=== PATIENT | female | born 2000 | race Caucasian/White ===

== ENCOUNTER → 2021-12-02 14:00 | Outpatient (BNVA) | payer MEDICARE, SELFPAY | PROVIDERS: PCP Internal Medicine; Visit Provider Psychiatry & Neurology Neurology | DX: G43.109 Migraine with aura, not intractable, without status migrainosus (principal) | CPT/HCPCS: Q3014 ==

== ENCOUNTER → 2022-02-09 16:00 | Outpatient (BNVA) | payer BC, SELFPAY | PROVIDERS: Visit Provider Psychiatry & Neurology Neurology | DX: G43.109 Migraine with aura, not intractable, without status migrainosus (principal) | CPT/HCPCS: Q3014 ==

== ENCOUNTER → 2023-02-14 11:19 | Outpatient (BNVA) | payer BC, SELFPAY | PROVIDERS: PCP Internal Medicine; Visit Provider Psychiatry & Neurology Neurology | DX: Z13.89 Encounter for screening for other disorder (principal) ==

== ENCOUNTER → 2023-05-18 15:44 | Outpatient (BNVA) | payer BC, SELFPAY | PROVIDERS: PCP Internal Medicine; Visit Provider Psychiatry & Neurology Neurology ==

== ENCOUNTER 2024-12-16 07:51 | Outpatient (AMB) | payer BC, SELFPAY ==
--- OUTSIDE RECORDS SUMMARY | 2024-12-16 07:54 | XMS_ITS | Clinical Summary ---
Author Organization [address] Address [address] [place] [phone] Phone Care Team Providers Care Child Support Agent Name Role Phone Obtain, Unable To Primary Care Provider Unavaila ble Allergies Active Allergy Reactions Criticality Noted Date Comments Amoxicillin 10/15/2019 Medications desogestrel-ethi nyl estradiol (RECLIPSEN, 28, ORAL) Take by mouth. Active rimegepant (NURTEC ODT) 75 mg TbDLIndications: Chronic migraine w/o aura w/o status migrainosus, not intractable Take 1 tablet (75 mg total) by mouth as needed (once daily for migraine). 8 tablet 6 0 Active venlafaxine XR (EFFEXOR XR) 150 mg 24 hr capsuleIndicatio ns:Chronic migraine w/o aura w/o status migrainosus, not intractable Take 1 capsule (150 mg total) by mouth daily. 30 capsule 6 0 Active naratriptan (AMERGE) 2.5 mg tabletIndication s:Chronic migraine w/o aura w/o status migrainosus, not intractable TAKE 1 TABLET BY MOUTH AT ONSET OF HEADACHE. MAY REPEAT IN 4 HOURS IF HEADACHE RETURNS 12 tablet 2 1 Active Active Problems Problem Noted Date Diagnosed Date Chronic migraine w/o aura w/ o status migrainosus, not intractable 10/15/2019 Family History Medical History Relation Name Comments Migraines Mother Relation Name Status Comments Father Alive Mother Alive Social History Tobacco Use Types Packs/Day Years Used Date Smoking Tobacco: Never Smokeless Tobacco: Never Alcohol Use Standard Drinks/Week Comments Yes 0 (1 standard drink = 0.6 oz pur e alcohol) occ Comments Unknown Sex and Gender Information Value Date Recorded Sex Assigned at Not on file Legal Sex Female 4:50 PM EDT Gender Identity Not on file Sexual Orientation Not on file Last Filed Vital Signs Vital Sign Reading Time Taken Comments Blood Pressure 102/64 11/15/2019 12:55 PM EST Pulse 69 11/15/2019 12:55 PM EST Temperature 35.8 ??C (96.5 ??F) 03/20/2018 6:30 PM ED T Respiratory Rate 18 11/15/2019 12:55 PM EST Oxygen Saturation 98% 11/15/2019 12:55 PM EST Inhaled Oxygen Concentration - - Weight 59 kg (130 lb) 11/15/2019 12:55 PM EST Height 172.7 cm (5' 8 ) 11/15/2019 12:55 PM EST Body Mass Index 19.77 11/15/2019 12:55 PM EST Plan of Treatment Health Maintenance Due Date Last Done Comments MMR Vaccines (1 of 1 - Standard series) 08/04/2009 HIV screening 2011 Hepatitis C screening 2016 Cervical cancer screening 2019 DTaP/TDaP Vaccines (7 - Td or Tdap) 07/08/2020 07/08/2010, 2002, 10/25/1999, Additional history exists Tetanus adult (Td q 10,TDAP once) 07/08/2020 07/08/2010, 2002, 10/25/1999, Additional history exists Influenza vaccine 06/20/2024 12/02/2019, , 11/28/2017, Additional history exists Covid-19 vaccine series (2023- season) 2024 RSV Discussion (1 - 1-dose 75+ series) 2073 Hepatitis B vaccine series Completed 01/21, 1998, 1998 HIB Vaccines Completed 10/25/1999, 02/1999, 1998, Additional history exists IPV Vaccines Completed 2002, 04/1999, 10/25/1999, Additional history exists Varicella Vaccines Completed 07/07/2009, 07/27/1999 HPV vaccine series Completed 01/29/2015, 1 , 07/08/2014 Meningococcal Vaccine Completed 11/24/2016, 012 Hepatitis A Vaccines Aged Out No long er eligible based on patient's age to complete this topic Pneumococcal Vaccine Aged Out No long er eligible based on patient's age to complete this topic Rotavirus Vaccines Aged Out No longer eligible based on patient's age to complete this topic Insurance [address] [address] BS BS Care Teams Child Support Agent Relationship Specialty Start Date End Date Obtain, Unable To PCP - General 03/20/18
--- OUTSIDE RECORDS SUMMARY | 2024-12-16 07:54 | XMS_ITS | Encounter Summary ---
Author Organization [facility] and [facility] Address [address] [place] [id number] Care Team Providers Care Plugger Worker Name Role Phone Obtain, Unable To Primary Care Provider Unavaila ble Encounter Details Date Type Department Care Team (Late st Contact Info) Description 09/05/2019 Scanned Document Neurology [address] [address] No, Pcp (Do Not Change Name) Social History Tobacco Use Types Packs/Day Years Used Date Smoking Tobacco: Never Assessed Comments Unknown Sex and Gender Information Value Date Recorded Sex Assigned at Not on file Legal Sex Female 4:50 PM EDT Gender Identity Not on file Sexual Orientation Not on file documented as of this encounter Plan of Treatment Not on file documented as of this encounter Visit Diagnoses Not on filedocumented in this encounter Care Teams Plugger Worker Relationship Specialty Start Date End Date Obtain, Unable To PCP - General 03/20/18 documented as of this encounter
--- OUTSIDE RECORDS SUMMARY | 2024-12-16 07:54 | XMS_ITS | Clinical Summary ---
Author Organization [facility] Address [address] [place] [address] Care Team Providers Care China Painter Name Role Phone Adrienne Hutson MD Primary Care Prov ider Allergies Active Allergy Reactions Criticality Noted Date Comments Amoxicillin Rash 06/29/2007 Food Allergy Formula Itching 10/09/2018 Green beans,apple, carrot, celery,banana, peach , manriquez,and nectarine AND SOY Medications Medication Sig Dispensed Refills Start Date End Date Status magnesium oxide (MAG-OX) 400 mg (241.3 elemental magnesium) tablet Take 1 tablet (400 mg total) by mouth. 11/24/2021 Active rimegepant (Nurtec) 75 mg dispersible tablet DISSOLVE 1 TABLET ON THE TONGUE EVERY OTHER DAY FOR MIGRAINE HEADACHE 11/22/2022 Active topiramate (TOPAMAX) 25 mg tablet Take 1 tablet (25 mg total) by mouth 1 (one) time each day. 05/19/2023 Active desogestreL-ethinyl estradioL (Isibloom) 0.15-0.03 mg per tablet Take 1 tablet by mouth 1 (one) time each day. 05/20/2024 Active amitriptyline (ELAVIL) 25 mg tablet Take 1 tablet (25 mg total) by mouth. 05/15/2023 Active Active Problems Problem Noted Date Diagnosed Date Migraines 04/21/2020 Chronic migraine w/o aura w/ o status migrainosus, not intractable 10/15/2019 Immunizations Name Administration Dates Next Due DTaP (Infanrix) 6wks to less than 7yo ,10/25/1999,01/21/1999,11/23,1998 [id number] (Pentacel) 2mo to less than 5yo 10/25/1999,01/21/1999,1998,09/24 HPV, Quadrivalent 01/29/2015,09/10/2014,07/08/20 14 Hepatitis B Pediatric (Enger ix B; Recombivax HB) to less than 20 yo 01/21/1999,1998,1998 IPV Inactivated polio (Ipol) 6wks and older 2002,10/25/1999,1998,09/24 Influenza Quadravalent, MDCK , 0.5ml, preservative free (Flucelvax) 6mo and older 12/02/2019 MMR, measles mumps and rubel la Live (Priorix; M-M-R II) 12mo and older 2002,07/27/1999 Meningococcal MCV4P 11/24/2016,07/16/2012 Pfizer SARS-CoV-2 COVID-19, mRNA, LNP-S, preservative free 03/10/2021,02/14/2021 Tdap Tetanus diptheria acell ular pertussis (Boostrix; Adacel) 7yo and older 01/03/2022,07/08/2010 Varicella live (Varivax) 12m o and older 07/07/2009,07/27/1999 Surgical History Surgery Date Site/Laterality Comments WISDOM TOOTH EXTRACTION PROCEDURE: HISTORICAL WISDOM TEETH EXTRACTION Medical History Medical History Date Comments [place] teeth extracted DX:[place] teeth extracted Family History Medical History Relation Name Comments Hyperlipidemia Father Other: Hearing loss Maternal Grandfather Diabetes Maternal Grandmother Breast cancer Mother preDM Other: Epilepsy Mother's side Hyperlipidemia Paternal Grandfather Other: Bee allergy Paternal Grandmother No Known Problems Sister Relation Name Status Comments Father Alive 09/01/64 Maternal Grandfather Alive Maternal Grandmother Alive Mother Alive 11/16/68 Mother's side Alive Paternal Grandfather Paternal Grandmother Sister Alive 07/19/01 Social History Tobacco Use Types Packs/Day Years Used Date Smoking Tobacco: Never Smokeless Tobacco: Never Alcohol Use Standard Drinks/Week Comments Yes 0 (1 standard drink = 0.6 oz pur e alcohol) Sex and Gender Information Value Date Recorded Sex Assigned at Not on file Gender Identity Not on file Sexual Orientation Not on file Obstetrics History Last Filed Vital Signs Vital Sign Reading Time Taken Comments Blood Pressure 110/62 05/20/2024 9:27 AM EDT Pulse 69 05/20/2024 9:27 AM EDT Temperature - - Respiratory Rate - - Oxygen Saturation - - Inhaled Oxygen Concentration - - Weight 70.3 kg (155 lb) 05/20/2024 9:27 AM EDT Height 172.7 cm (5' 8 ) 05/20/2024 9:27 AM EDT Body Mass Index 23.57 05/20/2024 9:27 AM EDT Plan of Treatment Upcoming Encounters Date Type Department Care Team (Late st Contact Info) Description 12/20/2024 7:30 AM EST Office Visit Adult Medicine [address] [phone] Adrienne Hutson MD [address] [place] [id number] Health Maintenance Due Date Last Done Comments Depression Screening 10/29/2022 HIV Screening 10/29/2022 Hepatitis C Screening 10/29/2022 Social Influencers of Health Screening 10/29/2022 COVID-19 Vaccine ( season) 2024 03/10/2021, 02/14/2021 Influenza Vaccine (#1) 2024 , 12/04/2018, 11/28/2017, Additional history exists Cervical Cancer Screening: Pap Smear 05/18/2026 05/18/2023, 12/27/2019 DTaP,Tdap,and Td Vaccines (8 - Td or Tdap) 01/03/2032 01/03/2022, 07/08/2010, 2002, Additional history exists Hepatitis B Vaccines Completed 01/21/1999, 1998, 1998 HIB Vaccines Completed 10/25/1999, 02/1999, 1998, Additional history exists IPV Vaccines Completed 2002, 04/1999, 10/25/1999, Additional history exists MMR Vaccines Completed 2002, 07/27/1999 Varicella Vaccines Completed 07/07/2009, 07/27/1999 HPV Vaccines Completed 01/29/2015, 08/21, 07/08/2014 Meningococcal ACWY Vaccine Completed 11/24/2016, Hepatitis A Vaccines Aged Out No long er eligible based on patient's age to complete this topic Pneumococcal Vaccine: Pediatrics (0 to 5 Years) and At-Risk Patients (6 to 64 Years) Aged Out No longer eligible based on patient's age to complete this topic RSV Immunization Patients Under 20 months Aged Out No longer eligible based on patient's age to complete this topic Procedures Procedure Name Priority Date/Time Associated Diagnosis Comments PAP SMEAR Routine 12/27/2019 from Last 3 Months or Most Recently Relevant to Health Maintenance Results * Pap smear (12/27/2019) 12/27/2019 Narrative HISTORICAL TESTING LAB RESULTING AGENCY - 12/31/2019 12:31 PM EST [id number] THINPREP PAP, IMAGED: NEGATIVE FOR SQUAMOUS INTRAEPITHELIAL LESION AND MALIGNANCY . ABUNDANT PARTIALLY OBSCURING ACUTE INFLAMMATORY CELLS ARE PRESENT. AARON MARQUEZ , RIA(ASCP) (CASE ELECTRONICALLY SIGNED 12 31 2019) ADEQUACY: SATISFACTORY ENDOCERVICAL/TRANSFORMATION ZONE COMPONENT PRESENT. SOURCE: THINPREP PAP HPV IF ASCUS, CERVICAL, IMAGED CLINICAL INFORMATION: HPV IF DIAGNOSIS OF ASCUS. Z12.4, Z01.419, HORMONES, PAP HX NEGATIVE, LMP 12/19/2019 LMP Marcelo Ordonez CNM LAB CYTOLOGY ORDERAB LES HISTORICAL TESTING LAB RESULTING AGENCY from Last 3 Months or Most Recently Relevant to Health Maintenance Care Teams China Painter Relationship Specialty Start Date End Date Adrienne Hutson MD PCP - General Internal Medicine 06/20/22
[2024-12-16 07:59] VITALS: BP 106/70; PULSE 70; O2SAT 95; BMI 22.0
--- NOTE | 2024-12-16 07:59 | A.OFFVIS_ITS ---
Vital Signs 12/16/24 07:59 Height 5 ft 8 in Weight 144 lb 8 oz BMI 22.0 BP 106/70 Blood Pressure Location Lt brachial Position Sitting Pulse 70 Pulse Source Pulse Oximeter Pulse Oximetry (%) 95 Oxygen Delivery Method Room Air Intake Visit Reasons: Follow up Intake Note: patient states she had a bad migrain in october that made her pass out on bathroom floor. Allergies amoxicillin Allergy (Mild, Verified 12/16/24 08:01) unknown soy Adverse Reaction (Mild, Verified 12/16/24 08:01) Unknown HPI Comments Details: Right-handed 24-yr-old female presents for f/u visit for migraine. Patient was last seen by Dr. Jackson in 05/09/2023. She is having 1 migraine attack per week, which can last 2 hours - 1-2 days with treatment. Without acute tx- attack may last up to 2 weeks. She reports she had a syncopal episode during a more severe migraine attack in October 2024. States, the headache started as a a dull headache during the day, but then converted to a migraine. She took a nurtec when she felt the headache become a migraine, she went home from work, she did eat some toast, and slept for a little while. She she got up to go to the bathroom, as she felt nausous. She felt even more nauseous and lightheaded, so sat on the floor, and next thing she knew, she came to laying on her side. She never did vomit during this attack. She denies incontinence or tongue biting. Denies postictal muscle soreness, worsening confusion. She had not eaten a full dinner the night before, but had eaten a full breakfast, lunch and the toast prior to this episode. She had drank her usual amount of water- typically 60 oz throughout the day. She is prone to orthostatic lightheadedness. She had a treadmill stress test, which was WNL per patient, approx 2 yrs ago to evaluate episodes of tachycardia (HR up to 200s) when doing weighted lunges (holding 2 10 lb dumbbells). She states that walking on the treadmill at approximately the 3.2 mph on an incline does not trigger tachycardia. She does not usually feel tachycardia upon standing. She does continue to exercise, but has not noticed this degree of tachycardia since stopping doing that particular exercise. She has never seen cardiology. She has never had a syncopal episode before. Denies h/o anemia. She is generally photophobic. Her appetite overall is not great. She is compliant w/ B2, topirmate, and amitriptyline. Feels nurtec is the only thing that helps anymore- uses it prn as when she tried to take it QOD she had nothing to treat her off day migraine attacks.. 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 Baseline headache characteristics: Throbbing/sharp pain in bilateral temples and neck (may be unilateral on either side) a/w seeing flashing lights when her eyes are closed but not open during not before the attack, photophobia, phonophobia, nausea, vomiting (in approx 40% of attacks, but often will feel better, orthostatic lightheadedness, concentration difficulties, and activity tolerance. [facility] Medical History Migraines Family History Mother Cancer Seizures Diabetes Father High cholesterol Social History Alcohol intake: current Alcohol intake frequency: holidays/special occasions only Patient Tobacco Use Status: Never used Tobacco Physical Exam Vital Signs: Last Vital Signs Pulse 70 12/16/24 07:59 BP 106/70 12/16/24 07:59 Pulse Ox 95 12/16/24 07:59 Oxygen Delivery Method Room Air 12/16/24 07:59 BMI result Body Mass Index 22.0 Const General: cooperative and no acute distress Orientation/consciousness: patient oriented x3 Resp Effort & Inspection: normal respiratory effort and able to speak in complete sentences Neuro General: patient oriented x3 Cranial nerves: Yes CN's II-XII intact bilaterally Cognition (Neuro): normal cognition Psych Appearance: grossly normal Mental Status: mental status grossly normal Speech and movement: Normal speech and movement present Affect: normal affect Attitude: cooperative Assessment & Plan Assessment & Plan (1) Migraine with aura: Code(s): G43.109 - Migraine with aura, not intractable, without status migrainosus Category: Medical (2) Syncope: Code(s): R55 - Syncope and collapse Category: Medical Qualifiers: Encounter type: initial encounter (3) Orthostatic lightheadedness: Code(s): R42 - Dizziness and giddiness Category: Medical Plan For episode of passing out/syncope: We will request a Cardiology consult We will request a baseline EEG Try adding 16-20 oz of electrolyte replacement beverage, such as Gatorade or liquid IV daily in the morning. For overall headache management: It is important to practice good self-care, including but not limited to eating a healthy diet, drinking enough fluids (typically 64 oz per day), maintaining a good sleep routine, and engaging in regular physical activity (typically 30-45 minutes of moderate physical activity 5 days per week). Track headaches. Information shared on nonpharmacological migraine treatment options. For acute/as needed headache treatment: It is important to take as needed acute medications at the first sign of headache, however you want to avoid taking most as needed headache too often as this can lead to medication overuse/adaptation headaches. Continue Rimegepant ODT (Nurtec ODT) 75mg, 1 tab at onset of headache.. Max of 1 tabs (75mg) per 24 hours. May take Rimegepant with OTC Tylenol 650mg q 4 hours, Ibuprofen 600mg q 6 hours, or Naproxen 440mg q 12 hrs prn. Previous acute migraine medication trials: Rizatriptan caused jaw tighness. Naratriptan was not tolerated. Acute migraine medication contraindications: None at this time For headache prevention medication: Preventative medications should be taken routinely as prescribed for best effect, it may take several weeks to see full effect. Continue Riboflavin 400mg daily in the morning. Continue amitriptyline 25 mg daily at bedtime- would not increase further due to h/o syncope. Continue topiramate 25 mg daily at bedtime- would not increase further due to h/o decreased appetite. Start Emgality 120mg/ml auto-injection: Loading dose: 240mg (2 120mg/ml auto-injections) via subcutaneous injection in 2 different sites). Then 30 days after loading dose, start Maintenance dose: 120mg (120mg/ml autoinjector) subcutaneous injection every month. Patient will let us know if she requires injection training once Emgality is available. Important considerations: * Emgality will likely require insurance prior authorization prior to receiving it from the pharmacy. * Potential side effects include allergic reaction and injection site reactions. * Emgality injection training educational video is available to view on [email or web address] * Store Emgality in the refrigerator in it's original packaging in order to protect from light. * Remove Emgality at least 1 hour prior to taking the injection. * Emgality can be left out of the fridge for?up to 7 days at a temperature not above 86?F. If either of these conditions are exceeded, then Emgality must be thrown away. * Once Emgality has been stored out of refrigeration, do not place it back in the refrigerator. Once we know, if Emgality is effective, consider weaning off of amitriptyline/topiramate. Previous migraine prevention medication trials: Amitriptyline and topiramate- not fully effective Migraine prevention medication contraindications: Antihypertensives due to orthostatic lightheadedness and syncope. Orders: Orders EEG electroencephalogram Today G43.109 - Migraine with aura, not intractable, without status migrainosus, R55 - Syncope and collapse Referrals Cardiology Referral G43.109 - Migraine with aura, not intractable, without status migrainosus, R42 - Dizziness and giddiness, R55 - Syncope and collapse Medications: New galcanezumab-gnlm (Emgality Pen) Loading dose: 120 mg subcu injection x2 in alternate sites (total 240 mg). To be followed by maintenance dose of 120 mg subcu q.month. 240 mg (2 mL) subcut ONCE 30 days 2 mL 0RF G43.109 - Migraine with aura, not intractable, without status migrainosus Changed From rimegepant (Nurtec ODT) 75 mg PO Q OTHER DAY 15 tabs 6RF migraine headache G43.109 - Migraine with aura, not intractable, without status migrainosus To rimegepant (Nurtec ODT) 75 mg PO DAILY 30 days PRN 16 tabs 6RF migraine headache MDD 1 tab G43.109 - Migraine with aura, not intractable, without status migrainosus From amitriptyline 25 mg PO BEDTIME 30 tabs 3RF To amitriptyline 25 mg PO BEDTIME 30 days 30 tabs 6RF From riboflavin (vitamin B2) 400 mg PO DAILY To riboflavin (vitamin B2) 400 mg PO DAILY 90 days 90 tabs 3RF Refilled topiramate 25 mg PO DAILY 30 tabs 6RF Coding Level of Care Code Est Pt Level 4 (80714) Diagnoses Migraine with aura G43.109 Syncope R55 Encounter type: initial encounter Orthostatic lightheadedness R42
== END 2024-12-16 09:07 | disposition home or self-care (01) ==
PROVIDERS: PCP Internal Medicine; Visit Provider Nurse Practitioner Family
DX: G43.109 Migraine with aura, not intractable, without status migrainosus (principal); R55 Syncope and collapse; R42 Dizziness and giddiness
CPT/HCPCS: 99214

== ENCOUNTER 2025-01-30 10:27 | Outpatient (REF) | payer BC, SELFPAY ==
--- NOTE | 2025-01-30 10:32 | EEG_ITS ---
This is a 16-channel EEG with an EKG lead. The patient is reported awake during the tracing. Background EEG rhythm is 12-14 hertz, 5 to 20 microvolt posteriorly and lower amplitude fast anteriorly. Patient transitioned into mild drowsiness with no significant abnormality. Photic stimulation does not produce any significant driving. Hyperventilation is unremarkable. Cardiac lead does not reveal any significant abnormality. No sharp wave spikes or paroxysmal tendency noted. IMPRESSION: Unremarkable EEG. MD JOSE L Trevino/ALONSO / [id number]
--- OUTSIDE RECORDS SUMMARY | 2025-01-30 13:06 | XMS_ITS | Clinical Summary ---
Author Organization [facility] Address [address] [place] [address] Care Team Providers Care Dump Grounds Checker Name Role Phone Adrienne Hutson MD Primary Care Prov ider Allergies Active Allergy Reactions Criticality Noted Date Comments Amoxicillin Rash 06/29/2007 Food Allergy Formula Itching 10/09/2018 Green beans,apple, carrot, celery,banana, peach , manriquez,and nectarine AND SOY Medications magnesium oxide (MAG-OX) 400 mg (241.3 elemental magnesium) tablet Take 1 tablet (400 mg total) by mouth. 2 Active rimegepant (Nurtec) 75 mg dispersible tablet DISSOLVE 1 TABLET ON THE TONGUE EVERY OTHER DAY FOR MIGRAINE HEADACHE 3 Active topiramate (TOPAMAX) 25 mg tablet Take 1 tablet (25 mg total) by mouth 1 (one) time each day. 3 Active desogestreL-ethi nyl estradioL (Isibloom) 0.15-0.03 mg per tablet Take 1 tablet by mouth 1 (one) time each day. 4 Active amitriptyline (ELAVIL) 25 mg tablet Take 1 tablet (25 mg total) by mouth. 3 Active Active Problems Problem Noted Date Diagnosed Date Migraines 04/21/2020 Chronic migraine w/o aura w/ o status migrainosus, not intractable 10/15/2019 Immunizations Name Administration Dates Next Due DTaP (Infanrix) 6wks to less than 7yo ,10/25/1999,01/21/1999,11/23,1998 [id number] (Pentacel) 2mo to less than 5yo 10/25/1999,01/21/1999,1998,09/24 HPV, Quadrivalent 01/29/2015,09/10/2014,07/08/20 14 Hepatitis B Pediatric (Enger ix B; Recombivax HB) to less than 20 yo 01/21/1999,1998,1998 IPV Inactivated polio (Ipol) 6wks and older 2002,10/25/1999,1998,09/24 Influenza Quadravalent, MDCK , 0.5ml, preservative free (Flucelvax) 6mo and older 12/02/2019 MMR, measles mumps and rubel la Live (Priorix; M-M-R II) 12mo and older 2002,07/27/1999 Meningococcal MCV4P 11/24/2016,07/16/2012 [place]wider SARS-CoV-2 COVID-19, mRNA, LNP-S, preservative free 03/10/2021,02/14/2021 Tdap Tetanus diptheria acell ular pertussis (Boostrix; Adacel) 7yo and older 01/03/2022,07/08/2010 Varicella live (Varivax) 12m o and older 07/07/2009,07/27/1999 Surgical History Surgery Date Site/Laterality Comments WISDOM TOOTH EXTRACTION PROCEDURE: HISTORICAL WISDOM TEETH EXTRACTION Medical History Medical History Date Comments [place] teeth extracted DX:[place] teeth extracted Family History Medical History Relation [...] drink = 0.6 oz pur e alcohol) Comments Unknown Sex and Gender Information Value Date Recorded Sex Assigned at Not on file Legal Sex Female 12:22 PM EST Gender Identity Not on file Sexual Orientation [...] Care Team (Late st Contact Info) Description 05/29/2025 9:45 AM EDT Office Visit Obstetrics and Gynecology [facility] [address] [place] [address] Marcelo Ordonez CN [address] [place] [address] 10/30/2025 3:00 PM EST Office Visit Adult Medicine [address] [phone] Adrienne Hutson MD [address] [place] [id number] Health Maintenance Due Date Last Done Comments [...] on patient's age to complete this topic Meningococcal B Vacine Aged Out No lo nger eligible based on patient's age to complete [...] RESULTING AGENCY - 12/31/2019 12:31 PM EST [id number] THINPREP PAP, IMAGED: NEGATIVE FOR SQUAMOUS INTRAEPITHELIAL LESION AND MALIGNANCY . ABUNDANT PARTIALLY OBSCURING ACUTE INFLAMMATORY CELLS ARE PRESENT. RIA MOBLEY(ASCP) (CASE ELECTRONICALLY SIGNED 12 31 2019) ADEQUACY: SATISFACTORY ENDOCERVICAL/TRANSFORMATION ZONE COMPONENT PRESENT. SOURCE: THINPREP PAP HPV IF ASCUS, CERVICAL, IMAGED CLINICAL INFORMATION: HPV IF DIAGNOSIS OF ASCUS. Z12.4, Z01.419, HORMONES, PAP HX NEGATIVE, LMP 12/19/2019 LMP us Marcelo Ordonez [facility] LAB CYTOLOGY ORDERABLES Final Result HISTORICAL TESTING LAB RESULTING AGENCY from Last 3 Months or Most Recently Relevant to Health Maintenance Care Teams Dump Grounds Checker Relationship Specialty Start Date End Date Adrienne Hutson MD PCP - General Internal Medicine 06/20/22
== END 2025-01-30 10:28 | disposition home or self-care (01) ==
LOC: HO.NEURO 10:27
PROVIDERS: PCP Internal Medicine; Visit Provider Nurse Practitioner Family
DX: R55 Syncope and collapse (principal); G43.109 Migraine with aura, not intractable, without status migrainosus
CPT/HCPCS: 95816

== ENCOUNTER 2025-06-05 08:49 | Outpatient (AMB) | payer BC, SELFPAY ==
--- NOTE | 2025-06-05 08:53 | A.OFFVIS_ITS ---
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: No Allergies amoxicillin Allergy (Mild, Verified 12/16/24 08:01) unknown soy Adverse Reaction (Mild, Verified 12/16/24 08:01) Unknown Medication List - Last Reconciled 06/05/25 by Joce Roque MD amitriptyline 25 mg PO BEDTIME 30 days desogestrel-ethinyl estradiol 0.15-0.03 mg (Isibloom) 1 tab PO DAILY epinephrine 0.3 mg IM Q4H PRN galcanezumab-gnlm (Emgality Pen) 240 mg (2 mL) subcut ONCE 30 days riboflavin (vitamin B2) 400 mg PO DAILY 90 days rimegepant (Nurtec ODT) 75 mg PO DAILY PRN 30 days MDD 1 tab spironolactone (Aldactone) 100 mg PO BID topiramate 25 mg PO DAILY HPI Comments Details: Thank you for referring Elise in cardiology consultation today for syncope. 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 She has had history of syncope since age of 10. However she has had 3 or 4 episodes of syncope in the last 14-15 years. The last episode was while she is having attack of migraine. She says she gets frequent attack of migraine and she gets nauseous. Last particular episode she was sitting near the toilet throwing up and subsequently she had passed out and was sitting against the wall. Symptoms lasted for less than a minute. There were no clear bowel bladder incontinence is noted that time. Patient did get lightheaded. She has history of lightheadedness and has symptoms of orthostatic lightheadedness. Some of the episodes of syncope has been associated with orthostatic stress especially after she has been standing for long period of time and locking her niece. One of the episode of syncope happened while she was doing upright lunges. One of the episodes was witnessed by her parents when she was younger and then notice that she was extremely pale. All these episodes have not associated with injuries and a preceded but lightheadedness. She denies any symptoms of palpitation although says sometimes with some exercises she noticed that her watch beats at a significantly elevated heart rate. She has no exertional chest pain or shortness of breath. She has no recent changes in his health. She was recently started on spironolactone therapy at 100 mg for acne. She has had no side effects related to it. No family history of sudden cardiac [facility] Medical History Migraines Family History Mother Cancer Seizures Diabetes Father High cholesterol Social History Alcohol intake: current Alcohol intake frequency: holidays/special occasions only Patient Tobacco Use Status: Never used Tobacco Review of Systems Const Denies chills, Denies daytime sleepiness, Denies fatigue, Denies fever(s), Denies frequent falls, Denies poor appetite, Denies snoring, Denies stops breathing during sleep, Denies weakness, Denies weight gain and Denies weight loss Eyes Denies loss of vision ENT Denies dizziness and Denies hearing loss Card Denies chest pain, Denies claudication, Denies leg edema, Denies lightheadedness, Denies palpitations, Denies dyspnea, Denies dyspnea on exertion and Denies orthopnea Resp Denies cough, Denies excessive phlegm production, Denies dyspnea, Denies dyspnea on exertion, Denies snoring and Denies wheezing GI Denies abdominal pain, Denies hematochezia, Denies change in bowel habits, Denies nausea and Denies vomiting Denies urinary frequency and Denies dysuria Musc Denies arthralgias, Denies muscle weakness, Denies numbness and Denies other (frequent falls) Skin/Breast Denies nail changes and Denies rash Neuro Denies Abnormal speech present, Denies dizziness, Denies frequent falls, Denies loss of vision, Denies memory loss, Denies numbness and Denies weakness Psych Denies depression and Denies memory loss Endo Denies fatigue and Denies palpitations Geoff/Lymph Reports easy bruising and Reports other (anemia) Aller/Immun Denies wheezing Physical Exam Vital Signs: Last Vital Signs Pulse 114 H 06/05/25 09:09 BP 112/73 06/05/25 09:09 BMI result Body Mass Index 21.1 Const General: cooperative, comfortable, well developed, alert, awake and Physically active Nutritional Appearance: well nourished and thin Orientation/consciousness: patient oriented x3 Limitations: no limitations HEENT Head: Yes normocephalic and Yes atraumatic Neck Neck: Yes trachea midline, Yes supple and Yes no JVD Chest Chest palpation & inspection: normal inspection of the chest Resp Effort & Inspection: normal respiratory effort Auscultation: clear to auscultation bilaterally Cardio Jugular venous distension: no JVD Palpation: normal PMI Rate: regular rate Rhythm: regular rhythm Heart sounds: S1 normal heart sound present, S2 normal heart sound present, no click, no gallops, no murmurs and no rubs GI Auscultation: normal bowel sounds Skin General skin exam: no rashes or lesions noted Neuro General: patient oriented x3 and no focal motor deficits Speech: No Abnormal speech present Extrem General: Yes no clubbing, cyanosis or edema Psych Appearance: grossly normal Office Procedures EKG Details: EKG shows normal sinus rhythm with low-voltage QRS which is unusual with rightward axis with poor R-wave progression most likely lead placement [id number], Complete Assessment & Plan Assessment & Plan (1) Syncope: Code(s): R55 - Syncope and collapse Category: Medical Qualifiers: Encounter type: initial encounter Plan: Syncope in this young woman, noted to have orthostatic tachycardia today. Patient has symptoms suggestive of orthostatic lightheadedness. Possible etiology of her syncope appears to be either vasovagal etiology and/or orthostatic hypotension. Both of the mechanism on most likely related to poor venous return and relative intravascular volume depletion. Her situations all suggest above 2 mechanism. This was discussed with her. She has no clear family history of sudden cardiac that. I would suggest that she get an echocardiogram to rule out any structural heart issues given her EKGs findings of low-voltage QRS as well as rightward axis. I would also suggest a 14 day Holter monitor to rule out any significant arrhythmias although less likely. She had a stress test 3 years ago and will try to obtain a copy of the same. However the most important test potentially he is going to be head-up tilt-table test. This will help us with the diagnose of possibly vasovagal or orthostatic syncope. Further treatment based on the finding. I have long discussion about management of this syndrome. We discussed about increase fluid and salt intake to mitigate her symptoms. Overall benign nature of this syndrome was discussed and discussed her about assuming sitting or supine position when she gets her initial symptoms of lightheadedness. She shows understanding to all. Will follow up in the clinic in 3 months time, sooner p.r.n.. Thank you for allowing me to partake in her care Coding Level of Care Code New Pt Level 4 (59651) Complex EM visit Add On G2211 Diagnoses Syncope R55 Encounter type: initial encounter CPT Codes EKG - CPT: 32706-[id number], Complete ([id number])
[2025-06-05 08:54] VITALS: BP 106/62; PULSE 71; BMI 21.1
[2025-06-05 09:07] VITALS: BP 105/73; PULSE 81
--- OUTSIDE RECORDS SUMMARY | 2025-06-05 09:08 | XMS_ITS | Clinical Summary ---
Author Organization [address] Address [address] [place] [phone] Phone Care Team Providers Care Aircraft Restorer Name Role Phone Obtain, Unable To Primary [...] 69 11/15/2019 12:55 PM EST Temperature 35.8 C (96.5 F) 03/20/2018 6:30 PM EDT Respiratory Rate 18 11/15/2019 12:55 PM EST [...] 07/08/2020 07/08/2010, 2002, 10/25/1999, Additional history exists Covid-19 vaccine series ( - 2023- season) 2024 Influenza vaccine 07/21/2025 12/02/2019, , 11/28/2017, Additional history exists RSV Immunization (1 - 1-dose 75+ series) 2073 Hepatitis [...] age to complete this topic Pneumococcal Vaccine (2 - 49 years) Aged Out No longer eligible based on patient's age to complete this topic Rotavirus Vaccines Aged Out No longer eligible based on patient's age to complete this topic Insurance [place] [address] BS BS Care Teams Aircraft Restorer Relationship Specialty Start Date End Date Obtain, Unable To PCP - General 03/20/18
--- OUTSIDE RECORDS SUMMARY | 2025-06-05 09:08 | XMS_ITS | Clinical Summary ---
Author Organization [facility] [address] [facility] Address [address] [place] [address] Phone Care Team Providers Care Staff Physical Therapist Name Role Phone Adrienne Hutson MD Primary [...] 1 (one) time each day. 3 Active amitriptyline (ELAVIL) 25 mg tablet Take 1 tablet (25 mg total) by mouth. 3 Active Isibloom 0.15-0.03 mg per tablet TAKE 1 TABLET BY MOUTH DAILY 84 tablet 1 5 Active Active Problems Problem Noted Date Diagnosed Date Migraines 04/21/2020 Chronic migraine w/o aura w/ o status migrainosus, not intractable 10/15/2019 Immunizations Name Administration Dates Next Due DTaP (Infanrix) 6wks to less than 7yo ,10/25/1999,01/21/1999,11/23,1998 [id number] (Pentacel) 2mo to less than 5yo 10/25/1999,01/21/1999,1998,09/24 HPV, Quadrivalent 01/29/2015,09/10/2014,07/08/20 14 Hepatitis B Pediatric (Enger ix B; Recombivax HB) to less than 20 yo 01/21/1999,1998,1998 IPV Inactivated polio (Ipol) 6wks and older 2002,10/25/1999,1998,09/24 Influenza Quadravalent, MDCK , 0.5ml, preservative free (Flucelvax) 6mo and older 12/02/2019 MMR, measles mumps and rubel la Live (Priorix; M-M-R II) 12mo and older 2002,07/27/1999 Meningococcal MCV4P 11/24/2016,07/16/2012 [place] SARS-CoV-2 COVID-19, mRNA, LNP-S, preservative free 03/10/2021,02/14/2021 Tdap Tetanus diptheria acell ular pertussis (Boostrix; Adacel) 7yo and older 01/03/2022,07/08/2010 Varicella live (Varivax) 12m o and older 07/07/2009,07/27/1999 Surgical History Surgery Date Site/Laterality Comments WISDOM TOOTH EXTRACTION PROCEDURE: HISTORICAL WISDOM TEETH EXTRACTION Medical History Medical History Date Comments [place] teeth extracted DX:[place] teeth extracted Family History Medical History Relation [...] Care Team (Late st Contact Info) Description 10/30/2025 3:00 PM EST Office Visit Adult Medicine [address] [phone] Adrienne Hutson MD [address] [place] [id number] Health Maintenance Due Date Last Done Comments Depression Screening 10/29/2022 HIV Screening 10/29/2022 Hepatitis C Screening 10/29/2022 Social Influencers of Health Screening 10/29/2022 COVID-19 Vaccine ( season) 2024 03/10/2021, 02/14/2021 Influenza Vaccine (#1) 2025 , 12/04/2018, 11/28/2017, Additional history exists Cervical [...] age to complete this topic Meningococcal B Vaccine Aged Out No l onger eligible based on patient's age to complete this topic Pneumococcal Vaccine: Pediatrics (0 to 5 Years) and At-Risk Patients (6 to 49 Years) Aged Out No longer eligible based [...] RESULTING AGENCY - 12/31/2019 12:31 PM EST [id number] THINPREP PAP, IMAGED: NEGATIVE FOR SQUAMOUS INTRAEPITHELIAL LESION AND MALIGNANCY . ABUNDANT PARTIALLY OBSCURING ACUTE INFLAMMATORY CELLS ARE PRESENT. RIA MOBLEY(ASCP) (CASE ELECTRONICALLY SIGNED 12 31 2019) ADEQUACY: SATISFACTORY ENDOCERVICAL/TRANSFORMATION ZONE COMPONENT PRESENT. SOURCE: THINPREP PAP HPV IF ASCUS, CERVICAL, IMAGED CLINICAL INFORMATION: HPV IF DIAGNOSIS OF ASCUS. Z12.4, Z01.419, HORMONES, PAP HX NEGATIVE, LMP 12/19/2019 LMP us Marcelo MUNOZ LAB CYTOLOGY ORDERABLES Final Result HISTORICAL TESTING LAB RESULTING AGENCY from Last 3 Months or Most Recently Relevant to Health Maintenance Insurance [facility] Care Teams Staff Physical Therapist Relationship Specialty Start Date End Date Adrienne Hutson MD PCP - General Internal Medicine 06/20/22
[2025-06-05 09:09] VITALS: BP 112/73; PULSE 114
== END 2025-06-05 09:36 | disposition home or self-care (01) ==
LOC: HO.HCS 08:51
PROVIDERS: PCP Internal Medicine; Visit Provider Internal Medicine Cardiovascular Disease
DX: R55 Syncope and collapse (principal)
CPT/HCPCS: 93010; 99204

== ENCOUNTER → 2025-06-05 08:49 | Outpatient (BNVA) | payer BC, SELFPAY | PROVIDERS: PCP Internal Medicine; Visit Provider Internal Medicine Cardiovascular Disease | DX: R55 Syncope and collapse (principal); R94.31 Abnormal electrocardiogram [ECG] [EKG] | CPT/HCPCS: 93005 ==

== ENCOUNTER 2025-06-12 08:47 | Outpatient (AMB) | payer BC, SELFPAY ==
[2025-06-12 08:52] VITALS: BP 110/62; PULSE 86; O2SAT 99; BMI 21.4
--- NOTE | 2025-06-12 08:52 | A.OFFVIS_ITS ---
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 Accompanied by: Self / Same As Patient Allergies amoxicillin Allergy (Mild, Verified 06/12/25 08:56) unknown soy Adverse Reaction (Mild, Verified 06/12/25 08:56) Unknown Medication List - Last Reconciled 06/12/25 by JOON Layne amitriptyline 25 mg PO BEDTIME 30 days desogestrel-ethinyl estradiol 0.15-0.03 mg (Isibloom) 1 tab PO DAILY epinephrine 0.3 mg IM Q4H PRN galcanezumab-gnlm (Emgality Pen) 240 mg (2 mL) subcut ONCE 30 days riboflavin (vitamin B2) 400 mg PO DAILY 90 days rimegepant (Nurtec ODT) 75 mg PO DAILY PRN 30 days MDD 1 tab spironolactone (Aldactone) 100 mg PO DAILY topiramate 25 mg PO DAILY HPI Comments Details: 24-year-old female patient presents for follow-up for migraine and history of syncope in October 2024. Patient denies any significant interval changes. 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 She denies any interval syncopal events. She recently saw Cardiology, who has ordered tilt-table test, echocardiogram, 14 day Holter. Patient states in terms of her migraines, she is about the same. She never started Emgality, states that insurance will only cover maintenance dose in the loading dose.? She is open to receiving loading dose here today, as we have available samples of Emgality loading dose.? She is having 1 migraine day per week. Nurtec is still helpful. 12/16/2024, previous HPI: Right-handed 24-yr-old female presents for f/u visit for migraine. Patient was last seen by Dr. Jackson in 05/09/2023. She is having 1 migraine attack per week, which can last 2 hours - 1-2 days with treatment. Without acute tx- attack may last up to 2 weeks. She reports she had a syncopal episode during a more severe migraine attack in October 2024. States, the headache started as a a dull headache during the day, but then converted to a migraine. She took a nurtec when she felt the headache become a migraine, she went home from work, she did eat some toast, and slept for a little while. She she got up to go to the bathroom, as she felt nausous. She felt even more nauseous and lightheaded, so sat on the floor, and next thing she knew, she came to laying on her side. She never did vomit during this attack. She denies incontinence or tongue biting. Denies postictal muscle soreness, worsening confusion. She had not eaten a full dinner the night before, but had eaten a full breakfast, lunch and the toast prior to this episode. She had drank her usual amount of water- typically 60 oz throughout the day. She is prone to orthostatic lightheadedness. She had a treadmill stress test, which was WNL per patient, approx 2 yrs ago to evaluate episodes of tachycardia (HR up to 200s) when doing weighted lunges (holding 2 10 lb dumbbells). She states that walking on the treadmill at approximately the 3.2 mph on an incline does not trigger tachycardia. She does not usually feel tachycardia upon standing. She does continue to exercise, but has not noticed this degree of tachycardia since stopping doing that particular exercise. She has never seen cardiology. She has never had a syncopal episode before. Denies h/o anemia. She is generally photophobic. Her appetite overall is not great. She is compliant w/ B2, topirmate, and amitriptyline. Feels nurtec is the only thing that helps anymore- uses it prn as when she tried to take it QOD she had nothing to treat her off day migraine attacks.. 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 Baseline headache characteristics: Throbbing/sharp pain in bilateral temples and neck (may be unilateral on either side) a/w seeing flashing lights when her eyes are closed but not open during not before the attack, photophobia, phonophobia, nausea, vomiting (in approx 40% of attacks, but often will feel better, orthostatic lightheadedness, concentration difficulties, and activity tolerance. [facility] Medical History Migraines Family History Mother Cancer Seizures Diabetes Father High cholesterol Social History Alcohol intake: current Alcohol intake frequency: holidays/special occasions only Patient Tobacco Use Status: Never used Tobacco Physical Exam Vital Signs: Last Vital Signs Pulse 86 06/12/25 08:52 BP 110/62 06/12/25 08:52 Pulse Ox 99 06/12/25 08:52 Oxygen Delivery Method Room Air 06/12/25 08:52 BMI result Body Mass Index 21.4 Const General: cooperative and no acute distress Orientation/consciousness: patient oriented x3 Resp Effort & Inspection: normal respiratory effort and able to speak in complete sentences Neuro General: patient oriented x3 Cranial nerves: Yes CN's II-XII intact bilaterally Cognition (Neuro): normal cognition Psych Appearance: grossly normal Mental Status: mental status grossly normal Speech and movement: Normal speech and movement present Affect: normal affect Attitude: cooperative Assessment & Plan Assessment & Plan (1) Migraine with aura: Code(s): G43.109 - Migraine with aura, not intractable, without status migrainosus Category: Medical Qualifiers: Status migrainosus presence: without status migrainosus Intractability: not intractable Qualified Code(s): G43.109 - Migraine with aura, not intractable, without status migrainosus (2) Syncope: Code(s): R55 - Syncope and collapse Category: Medical Qualifiers: Encounter type: subsequent encounter (3) Orthostatic lightheadedness: Code(s): R42 - Dizziness and giddiness Category: Medical Plan For episode of passing out/syncope: Reviewed EEG within normal limits We will check baseline CBC and CMP-noting that patient has recently started spironolactone for acne treatment Follow-up with cardiology as scheduled Tilt-table test, echocardiogram, and Holter as ordered by Cardiology. Ensure adequate fluid intake, including 16-20 oz of electrolyte replacement beverage, such as Gatorade or liquid IV daily in the morning. For overall headache management: It is important to practice good self-care, including but not limited to eating a healthy diet, drinking enough fluids (typically 64 oz per day), maintaining a good sleep routine, and engaging in regular physical activity (typically 30-45 minutes of moderate physical activity 5 days per week). Track headaches. Information shared on nonpharmacological migraine treatment options. For acute/as needed headache treatment: It is important to take as needed acute medications at the first sign of he adache, however you want to avoid taking most as needed headache too often as this can lead to medication overuse/adaptation headaches. Continue Rimegepant ODT (Nurtec ODT) 75mg, 1 tab at onset of headache.. Max of 1 tabs (75mg) per 24 hours. May take Rimegepant with OTC Tylenol 650mg q 4 hours, Ibuprofen 600mg q 6 hours, or Naproxen 440mg q 12 hrs prn. Previous acute migraine medication trials: Rizatriptan caused jaw tighness. Naratriptan was not tolerated. Acute migraine medication contraindications: None at this time For headache prevention medication: Preventative medications should be taken routinely as prescribed for best effect, it may take several weeks to see full effect. Continue Riboflavin 400mg daily in the morning. Continue amitriptyline 25 mg daily at bedtime- would not increase further due to h/o syncope. Continue topiramate 25 mg daily at bedtime- would not increase further due to h/o decreased appetite. Start Emgality 120mg/ml auto-injection today- RN we will provide initial Emgality injection with Emgality loading dose sample. * Loading dose: 240mg (2 120mg/ml auto-injections) via subcutaneous injection in 2 different sites). * Then 30 days after loading dose, start Maintenance dose: 120mg (120mg/ml autoinjector) subcutaneous injection every month. * Important considerations: * Emgality will likely require insurance reauthorization, after starting Emgality. * Potential side effects include allergic reaction and injection site reactions. * Emgality injection training educational video is available to view on [employer] * Store Emgality in the refrigerator in it's original packaging in order to protect from light. * Remove Emgality at least 1 hour prior to taking the injection. * Emgality can be left out of the fridge for?up to 7 days at a temperature not above 86?F. If either of these conditions are exceeded, then Emgality must be thrown away. * Once Emgality has been stored out of refrigeration, do not place it back in the refrigerator. Once we know, if Emgality is effective, consider weaning off of amitriptyline/topiramate. Previous migraine prevention medication trials: Amitriptyline and topiramate- not fully effective Migraine prevention medication contraindications: Antihypertensives due to orthostatic lightheadedness and syncope. Will follow-up upon review of above and patient to follow-up in clinic in 6 months or sooner prn. Sample provided: Emgality 120mg/ml auto-injector Amt given: 1 box containing 240mg (2 120mg/ml auto-injections) Lot# [id number] Exp date: 05/28/2026 24 y/o female patient presents for Emgality injection training. Emgality 120mg/ml X2 injection sample provided. Lot #[id number] and Exp 2025May 28 Education regarding injection and side effects provided. Emgality 120mg/ml injection administered on pt administered LLQ and RN administered RLQ. Pt tolerated and demonstrated the injection well. Follow up in clinic as scheduled or prn with concerns. Orders: Orders Comprehensive Met. Panel Today G43.109 - Migraine with aura, not intractable, without status migrainosus, L70.9 - Acne, unspecified, R42 - Dizziness and giddiness, R55 - Syncope and collapse Complete Blood Count Auto Diff Today G43.109 - Migraine with aura, not intrac table, without status migrainosus, L70.9 - Acne, unspecified, R42 - Dizziness and giddiness, R55 - Syncope and collapse Medications: New galcanezumab-gnlm (Emgality Pen) Maintenance dose of 120 mg subcu q.month. 120 mg subcut Q30D 1 mL 6RF 30 days Discontinued galcanezumab-gnlm (Emgality Pen) Loading dose: 120 mg subcu injection x2 in alternate sites (total 240 mg). To be followed by maintenance dose of 120 mg subcu q.month. Discontinued Reason: Doctor's Order 240 mg (2 mL) subcut ONCE 30 days 2 mL 0RF G43.109 - Migraine with aura, not intractable, without status migrainosus Coding Level of Care Code Est Pt Level 4 (57749) Diagnoses Migraine with aura and without status migrainosus, not intractable G43.109 Status migrainosus presence: without status migrainosus Intractability: not intractable Syncope R55 Encounter type: subsequent encounter Orthostatic lightheadedness R42
--- OUTSIDE RECORDS SUMMARY | 2025-06-12 09:14 | XMS_ITS | Clinical Summary ---
Author Organization [facility] [address] [facility] [address] Address [address] [place] [address] Phone Care Team Providers Care Joint Maker Machine Name Role Phone Adrienne Hutson MD Primary [...] (Infanrix) 6wks to less than 7yo ,10/25/1999,01/21/1999,11/23,1998 WEdG-RZY-PPX (Pentacel) 2mo to less than 5yo 10/25/1999,01/21/1999,1998,09/24 HPV, Quadrivalent 01/29/2015,09/10/2014,07/08/20 14 Hepatitis B Pediatric (Enger ix B; Recombivax HB) to less than 20 yo 01/21/1999,1998,1998 IPV Inactivated polio (Ipol) 6wks and older 2002,10/25/1999,1998,09/24 Influenza Quadravalent, MDCK , 0.5ml, preservative free (Flucelvax) 6mo and older 12/02/2019 MMR, measles mumps and rubel la Live (Priorix; M-M-R II) 12mo and older 2002,07/27/1999 Meningococcal MCV4P 11/24/2016,07/16/2012 Tins.ly SARS-CoV-2 COVID-19, mRNA, LNP-S, preservative free 03/10/2021,02/14/2021 Tdap Tetanus diptheria acell ular pertussis (Boostrix; Adacel) 7yo and older 01/03/2022,07/08/2010 Varicella live (Varivax) 12m o and older 07/07/2009,07/27/1999 Surgical History Surgery Date Site/Laterality Comments WISDOM TOOTH EXTRACTION PROCEDURE: HISTORICAL WISDOM TEETH EXTRACTION Medical History Medical History Date Comments [place] teeth extracted DX:[place] teeth extracted Family History Medical History Relation [...] Care Team (Late st Contact Info) Description 08/12/2025 1:[address] [facility] Xray [address] [place] [address] 10/30/2025 3:00 PM EST Office Visit Adult Medicine [facility] [address] [place] [phone] Adrienne Hutson MD [address] [place] [id number] Health Maintenance Due Date Last Done Comments HIV Screening 10/29/2022 Hepatitis C Screening 10/29/2022 Social Influencers of Health Screening 10/29/2022 COVID-19 Vaccine ( season) 2024 03/10/2021, 02/14/2021 Depression Screening 11/20/2024 Influenza Vaccine (#1) 2025 , 12/04/2018, 11/28/2017, [...] RESULTING AGENCY - 12/31/2019 12:31 PM EST [id number] THINPREP PAP, IMAGED: NEGATIVE FOR SQUAMOUS INTRAEPITHELIAL LESION AND MALIGNANCY . ABUNDANT PARTIALLY OBSCURING ACUTE INFLAMMATORY CELLS ARE PRESENT. RIA MOBLEY(ASCP) (CASE ELECTRONICALLY SIGNED 12 31 2019) ADEQUACY: SATISFACTORY ENDOCERVICAL/TRANSFORMATION ZONE COMPONENT PRESENT. SOURCE: THINPREP PAP HPV IF ASCUS, CERVICAL, IMAGED CLINICAL INFORMATION: HPV IF DIAGNOSIS OF ASCUS. Z12.4, Z01.419, HORMONES, PAP HX NEGATIVE, LMP 12/19/2019 LMP Marcelo Ordonez CNM LAB CYTOLOGY ORDERABLES Final Result HISTORICAL TESTING LAB RESULTING AGENCY from Last 3 Months or Most Recently Relevant to Health Maintenance Insurance [facility] Care Teams Joint Maker Machine Relationship Specialty Start Date End Date Adrienne Hutson MD PCP - General Internal Medicine 06/20/22
--- OUTSIDE RECORDS SUMMARY | 2025-06-12 09:14 | XMS_ITS ---
Author Name [facility] Organization Unknown Care Team Organization Name Specialty Phone Email Start Date End Da te [facility] Adrienne Lopez Primary Care 01/25/2023 07/08/2024 [facility] Termed, PROVIDER Primary Care 09/27/202206/20
--- OUTSIDE RECORDS SUMMARY | 2025-06-12 09:14 | XMS_ITS | Clinical Summary ---
[place] [address] Care Team Providers Care Claims Collector Name Role Phone Unavailable Primary Care Provider Unavailabl e Encounters Date Type Department Care Team Description 04/21/2025 Telephone [place] [phone] Macarena Santo, RN Donor Referral (Kidney) 04/17/2025 Telephone [place] [phone] Macarena Santo, RN Donor Referral (Kidney) 04/16/2025 Telephone [place] [phone] Juliet Rodriguez from Last 3 Months Social History Tobacco Use Types Packs/Day Years Used Date Smoking Tobacco: Never Assessed Comments Unknown Sex and Gender Information Value Date Recorded Sex Assigned at Not on file Legal Sex Female 11:55 AM EDT Gender Identity Not on file Sexual Orientation Not on file Plan of Treatment Health Maintenance Due Date Last Done Comments HPV vaccine (1 - 3-dose series) 2013 HIV screen 2016 Hepatitis C Screening 2016 Hepatitis B vaccine (0-59 yrs) and Risk (1) 2017 Tetanus/Diphtheria/Pertussis Vaccines (1 - Tdap) 07/23 PAP Smear 2019 Covid-19 Vaccine ( - 2023- season) 2024 Influenza (Flu) vaccine (1 o f 1 - Influenza standard series) 07/21/2025
== END 2025-06-12 09:18 | disposition home or self-care (01) ==
LOC: HO.HSMS 08:48
PROVIDERS: PCP Internal Medicine; Visit Provider Nurse Practitioner Family
DX: G43.109 Migraine with aura, not intractable, without status migrainosus (principal); R55 Syncope and collapse; R42 Dizziness and giddiness
CPT/HCPCS: 99214

== ENCOUNTER 2025-06-12 08:47 | Outpatient (REF) | payer BC, SELFPAY ==
--- OUTSIDE RECORDS SUMMARY | 2025-06-12 09:58 | XMS_ITS | Clinical Summary ---
Author Organization [address] Address [address] [place] [phone] Phone Care Team Providers Care Nurse Auditor Name Role Phone Obtain, Unable To Primary [...] patient's age to complete this topic Insurance [address] [place] [address] BS BS Care Teams Nurse Auditor Relationship Specialty Start Date End Date Obtain, Unable To PCP - General 03/20/18
[2025-06-12 13:17] LABS: MANUAL DIFF FLAG NO
[2025-06-12 13:24] LABS: Hematocrit 39.0 % (37.0-47.0); Hemoglobin 12.8 g/dl (12.0-16.0); Imm Gran Abs Auto 0.02 X10*3/uL (0.00-0.03); Imm Gran Pct Auto 0.3 % (0.0-0.4); Lymphocytes Absolute Auto 2.8 X10*3/uL (1.2-4.9); Mean Corpuscular HGB Conc 32.8 g/dl (31.0-35.0); Mean Corpuscular Hemoglobin 27.8 pg (27.0-33.0); Mean Corpuscular Volume 84.8 fL (80.0-98.0); NRBC Abs Auto 0.000 X10*3/uL (0.0-0.012); NRBC Pct Auto 0.0 /100WBC (0.0-0.2); Platelet Count 298 X10*3/uL (160-400); Red Blood Count 4.60 X10*6/uL (4.20-5.50); White Blood Count 7.6 X10*3/uL (4.8-10.8)
[2025-06-12 13:44] LABS: Alanine Aminotransferase 14 U/L (0-31); Albumin Level 4.5 g/dL (3.5-5.0); Alkaline Phosphatase 64 U/L (39-117); Anion Gap 12 (12-20); Aspartate Amino Transferase 19 U/L (5-31); Blood Urea Nitrogen 15 mg/dL (9-16); Calcium 9.9 mg/dL (8.4-10.2); Carbon Dioxide 24 mmol/L (22-29); Chloride 109 mmol/L (96-108); Estimated Glomerular Filt Rate > 60; Potassium 4.7 mmol/L (3.3-5.1); Sodium 140 mmol/L (135-145); Total Protein 7.3 g/dL (6.5-8.0)
== END 2025-06-12 08:48 | disposition home or self-care (01) ==
LOC: HO.HKASLDS 08:47
PROVIDERS: PCP Internal Medicine; Visit Provider Nurse Practitioner Family
DX: G43.109 Migraine with aura, not intractable, without status migrainosus (principal); L70.9 Acne, unspecified; R55 Syncope and collapse; R42 Dizziness and giddiness; Z79.899 Other long term (current) drug therapy
CPT/HCPCS: 36415; 80053; 85025

== ENCOUNTER → 2025-07-31 08:48 | Outpatient (REF) | payer BC, SELFPAY ==
--- NOTE | 2025-07-31 08:52 | CA_ITS ---
Transthoracic Echocardiogram Patient (Last, First, Middle): Elise Alexandra, Gender: F Date of : 2000 Age: 25 Procedure Date: 07/31/2025 Procedure Type: Transthoracic Echocardiogram Location: OP Height: 172. cm Weight: 63.5 kg BSA: 1.75 m2 Heart Rate: 74 bpm BP: 110 / 70 mmHg Sales Service Supervisor: BRANNON Olea MD: Joce Roque MD Customer Support Advisor: Joce Roque MD Symptoms: R55 - Syncope and collapse Study Quality: Fair ECG Rhythm: Sinus Conclusions: - Essentially normal study Findings Left Ventricle Normal left ventricular size, thickness, and systolic function. The visually estimated ejection fraction is between 60-65%. Diastolic function is normal for age. Right Ventricle Normal right ventricular cavity size and systolic function. Atria Both atria are normal in size. There is no evidence of interatrial shunt. Aortic Valve Normal aortic valve structure and function. There is no aortic valve stenosis. There is no aortic valve regurgitation. Mitral Valve Normal mitral valve structure and function. There is trace mitral valve regurgitation. There is no mitral valve stenosis. Pulmonic Valve The pulmonic valve is likely normal. There is trace pulmonic valve regurgitation. Tricuspid Valve Normal tricuspid valve structure. There is no tricuspid valve regurgitation. Tricuspid regurgitation envelope is inadequate for calculation of right ventricular systolic pressure. Normal right atrial pressure. Great Vessels All visible segments of the aorta are normal in size. The pulmonary artery was not well visualized. Venous The inferior vena cava is normal in size and collapses greater than 50% with inspiration. Pericardium/Pleural There is no evidence of pericardial effusion. Prior Study Comparison No prior study available for comparison. Measurements 2D Linear Measurements IVSd: 0.56 0.6-0.9/0.6-1.0 cm LVIDd: 4.49 3.9-5.3/4.2-5.9 cm LVIDd Index: 2.57 2.4-3.2/2.2-3.1 cm/m2 LVIDs: 3.25 2.0-3.6 cm LVPWd: 0.62 0.7-1.1 cm LA Diam: 2.70 2.7-3.8/3.0-4.0 cm LAIDs Index: 1.54 1.5-2.3 cm/m2 LV Mass: 95.44 67-162/88-224 g LV Mass Index: 54.53 43-95/49-115 g/m2 LVOT Diam: 1.90 3.0+(-)1.3 cm 2D Systolic Function EF 4C: 64.80 >55% EF 2C: 66.70 >55% EF BiP: 65.40 >55% Mitral Valve MV Pk E: 0.90 MV PK A: 0.50 MV Decel Time: 207.00 E/A: 1.80 E'Lateral: 13.80 E'Medial: 11.90 E/E' Med: 7.50 E/E' Lat: 6.50 PHT: 61.00 MVA PHT: 3.61 Decel [place]: 4.34 Aortic Valve AoV Pk Fernie: 1.07 AoV Mn Fernie: 0.84 AoV VTI: 0.22 AoV Pk Grad: 5.00 Aov Mn Grad: 3.00 ROLF Cont.VTI: 2.40 LVOT LVOT Pk Fernie: 0.89 LVOT Mn Fernie: 0.67 LVOT VTI: 0.18 LVOT Pk Grad: 3.00 LVOT Mn Grad: 2.00 LVOT Diam: 1.90 LVOT Area: 2.84 Diastolic Function MV Pk E: 0.90 MV Pk A: 0.50 E/A: 1.80 E'Medial: 11.90 E/E' Med: 7.50 E' Laterial: 13.80 E/E' Lat: 6.50 Right Ventricle TAPSE (mm): 19.50 TVS' Fernie: 11.70 Tricuspid Valve RA Press: 3.00 Great Vessels Aorta Sinus of Valsalva: 2.40 2.0-3.5 cm Ao Asc: 2.30 2.1-3.4 cm Pulmonary Veins Pulm Vein S/D 0.90 Pulmonary Valve PV Pk Fernie: 0.83 Peak PV Grad: 3.00 Updated in Other Vendor System with Status of Final Joce Roque MD electronically signed on 07/31/2025 4:01:52 PM with status of Final
--- OUTSIDE RECORDS SUMMARY | 2025-07-31 09:57 | XMS_ITS ---
Author Organization [place] [address] Care Team Providers Care Regional Education Coordinator Name Role Phone Unavailable Primary Care Provider Unavailabl e Transplant Episode Kidney Potential Donor [facility] ([place], [place]) - [facility] Referred on 04/16/2025 Marked as Patient on Hold on 04/21/2025 Reason: Another Donor in Work-up Kidney CoordinatorMacarena Santo RN Phone: N/A Fax: N/A Email: N/A Care Team Name Role Phone Fax Email Macarena Santo RN Kidney Coordinator N/A N/A N/A Events Pre-Donation Referred: 04/16/2025
--- OUTSIDE RECORDS SUMMARY | 2025-07-31 09:57 | XMS_ITS | Clinical Summary ---
Author Organization [address] Address [address] [place] [phone] Phone Care Team Providers Care Diagnostic Sales Specialist Name Role Phone Obtain, Unable To Primary [...] Maintenance Due Date Last Done Comments HIV screening 2011 Hepatitis C screening 2016 Cervical cancer screening 2019 Tetanus adult (Td q 10,TDAP once) 07/08/2020 07/08/2010, 2002, 10/25/1999, Additional history exists Covid-19 vaccine series ( - 2023- season) 2025 Influenza vaccine 07/21/2025 12/02/2019, , 11/28/2017, Additional history exists RSV Immunization (1 - 1-dose 75+ series) 2073 Meningococcal Vaccine Completed 11/24/2016, 012 Meningococcal B Vaccine Aged Out No l onger eligible based on patient's age to complete this topic Pneumococcal Vaccine (2 - 49 years) Aged Out No longer eligible based on patient's age to complete this topic Insurance [facility] Care Teams Diagnostic Sales Specialist Relationship Specialty Start Date End Date Obtain, Unable To PCP - General 03/20/18
--- OUTSIDE RECORDS SUMMARY | 2025-07-31 09:57 | XMS_ITS | Clinical Summary ---
Author Organization [facility] [address] [facility] lding Address [address] [place] [address] Phone Care Team Providers Care Design Studio Consultant Name Role Phone Adrienne Hutson MD Primary [...] (25 mg total) by mouth. 3 Active desogestreL-ethi nyl estradioL (Isibloom) 0.15-0.03 mg per tablet Take 1 tablet by mouth 1 (one) time each day. 84 tablet 1 5 Active Isibloom 0.15-0.03 mg per tablet TAKE 1 TABLET BY MOUTH DAILY 84 tablet 1 5 07/28/20 25 Discontinu ed(Reorder ) Active Problems Problem Noted Date Diagnosed Date Migraines 04/21/2020 Chronic migraine w/o aura w/ o status migrainosus, not intractable 10/15/2019 Immunizations Name Administration Dates Next Due DTaP (Infanrix) 6wks to less than 7yo ,10/25/1999,01/21/1999,11/23,1998 [id number] (Pentacel) 2mo to less than 5yo 10/25/1999,01/21/1999,1998,09/24 HPV, Quadrivalent 01/29/2015,09/10/2014,07/08/20 14 Hepatitis B Pediatric (Enger ix B; Recombivax HB) to less than 20 yo 01/21/1999,1998,1998 IPV Inactivated polio (Ipol) 6wks and older 2002,10/25/1999,1998,09/24 Influenza Quadravalent, MDCK , 0.5ml, preservative free (Flucelvax) 6mo and older 12/02/2019 MMR, measles mumps and rubel la Live (Priorix; M-M-R II) 12mo and older 2002,07/27/1999 Meningococcal MCV4P 11/24/2016,07/16/2012 [employer] SARS-CoV-2 COVID-19, mRNA, LNP-S, preservative free 03/10/2021,02/14/2021 Tdap Tetanus diptheria acell ular pertussis (Boostrix; Adacel) 7yo and older 01/03/2022,07/08/2010 Varicella live (Varivax) 12m o and older 07/07/2009,07/27/1999 Surgical History Surgery Date Site/Laterality Comments WISDOM TOOTH EXTRACTION PROCEDURE: HISTORICAL WISDOM TEETH EXTRACTION Medical History Medical History Date Comments [place] teeth extracted DX:[place] teeth extracted Family History Medical History Relation [...] Info) Description 08/12/2025 1:45 PM EDT Appointment [facility] Xr [address] [place] [address] 10/30/2025 3:00 PM EST Office Visit Adult Medicine [address] [phone] Adrienne Hutson MD [address] [place] [address] Health Maintenance Due Date Last Done Comments HIV Screening 10/29/2022 Hepatitis C Screening 10/29/2022 Social Influencers of Health Screening 10/29/2022 Depression Screening 11/20/2024 COVID-19 Vaccine ( season) 2025 03/10/2021, 02/14/2021 Influenza Vaccine (#1) 2025 , [...] Procedure Name Priority Date/Time Associated Diagnosis Comments ..LAB TO CALL RESULTS Routine 06/12/2025 2:13 PM EDT PAP SMEAR Routine 12/27/2019 from Last 3 Months or Most Recently Relevant to Health Maintenance Results * Lab use only - Non-affiliated results notification (06/12/2025 2:13 PM EDT) Other Topography unknown / Unknown us Historical Provider LAB BLOOD ORDERABLES Delmi l Result * Pap smear (12/27/2019) 12/27/2019 Narrative HISTORICAL TESTING LAB RESULTING AGENCY - 12/31/2019 12:31 PM EST [id number] THINPREP PAP, IMAGED: NEGATIVE FOR SQUAMOUS INTRAEPITHELIAL LESION AND MALIGNANCY . ABUNDANT PARTIALLY OBSCURING ACUTE INFLAMMATORY CELLS ARE PRESENT. RIA MOBLEY(ASCP) (CASE ELECTRONICALLY SIGNED 12 31 2019) ADEQUACY: SATISFACTORY ENDOCERVICAL/TRANSFORMATION ZONE COMPONENT PRESENT. SOURCE: THINPREP PAP HPV IF ASCUS, CERVICAL, IMAGED CLINICAL INFORMATION: HPV IF DIAGNOSIS OF ASCUS. Z12.4, Z01.419, HORMONES, PAP HX NEGATIVE, LMP 12/19/2019 LMP us Marcelo Ordonez CNM LAB CYTOLOGY ORDERABLES Final Result HISTORICAL TESTING LAB RESULTING AGENCY from Last 3 Months or Most Recently Relevant to Health Maintenance Insurance [facility] ([facility]) Care Teams Design Studio Consultant Relationship Specialty Start Date End Date Adrienne Hutson MD PCP - General Internal Medicine 06/20/22
--- OUTSIDE RECORDS SUMMARY | 2025-07-31 09:57 | XMS_ITS | Clinical Summary ---
[place] [address] Care Team Providers Care Dental Service Technician Name Role Phone Unavailable Primary Care Provider Unavailabl e Social History Tobacco Use Types Packs/Day Years Used Date Smoking Tobacco: Never Assessed Comments Unknown Sex and Gender Information Value Date Recorded Sex Assigned at Not on file Legal Sex Female 11:55 AM EDT Gender Identity Not on file Sexual Orientation Not on file Plan of Treatment Health Maintenance Due Date Last Done Comments HIV screen 2016 Hepatitis C Screening 2016 Hepatitis B vaccine (0-59 yrs) and Risk (1) 2017 Tetanus/Diphtheria/Pertussis Vaccines (1 - Tdap) 07/23 PAP Smear 2019 Covid-19 Vaccine (1 - season) 2025 Influenza (Flu) vaccine (1 o f 1 - Influenza standard series) 07/21/2025
--- OUTSIDE RECORDS SUMMARY | 2025-07-31 09:57 | XMS_ITS | Encounter Summary ---
Author Organization [facility] Address [address] [place] [phone] Care Team Providers Care Muffle Operator Name Role Phone Obtain, Unable To Primary Care Provider Unavaila ble Encounter Details Date Type Department Care Team (Late st Contact Info) Description 09/05/2019 Scanned Document Neurology [address] [address] No, Pcp (Do Not Change Name) Social [...] on filedocumented in this encounter Care Teams Muffle Operator Relationship Specialty Start Date End Date Obtain, Unable To PCP - General 03/20/18 documented as of this encounter
== END ==
LOC: HO.CARD 08:48
PROVIDERS: PCP Internal Medicine; Visit Provider Internal Medicine Cardiovascular Disease
DX: R55 Syncope and collapse (principal)
CPT/HCPCS: 93246; 93306

== ENCOUNTER → 2025-07-31 08:52 | Outpatient (BNV) | payer BC, SELFPAY | PROVIDERS: PCP Internal Medicine; Visit Provider Internal Medicine Cardiovascular Disease | DX: R55 Syncope and collapse (principal) | CPT/HCPCS: 93306 ==

== ENCOUNTER → 2025-08-13 15:37 | Outpatient (AMB) | payer BC, SELFPAY ==
--- OUTSIDE RECORDS SUMMARY | 2025-08-12 13:27 | XMS_ITS | Encounter Summary ---
Author Organization [facility] Address [address] [place] [address] Care Team Providers Care Financial Service Rep Name Role Phone Adrienne Hutson MD Primary Care Prov ider Reason for Referral * Cardiac Stress Testing (Routine) - Authorized Specialty Diagnoses / Procedures Referred By Contac t Referred To Contact Cardiology Diagnoses Syncope and collapse Procedures Tilt table Joce Roque MD [facility] [address] [place] [address] Phone: tel: fax: [facility] Referral ID Status Reason Start Date Expiration Date V isits Requested Visits Authorized [id number] Authorized 06/05/2025 06/05/2026 1 1 Reason for Visit * Cardiac Stress Testing (Routine) - Authorized Specialty Diagnoses / Procedures Referred By Contac t Referred To Contact Cardiology Diagnoses Syncope and collapse Procedures Tilt table Joce Roque MD [facility] [address] [place] [address] Phone: tel: fax: [facility] Referral ID Status Reason Start Date Expiration Date V isits Requested Visits Authorized [id number] Authorized 06/05/2025 06/05/2026 1 1 Encounter Details Date Type Department Care Team (Latest Contact Info) Description 08/12/2025 1:27 PM EDT - 08/12/2025 11:59 PM EDT Hospital Encounter [facility] Xray [address] [place] [phone] Syncope and collapse Discharge Disposition: Home or Self Care Social History Tobacco Use Types Packs/Day Years [...] on file documented as of this encounter Medications at Time of Discharge amitriptyline (ELAVIL) 25 mg tablet Take 1 tablet (25 mg total) by mouth. 05/15/2023 desogestreL-ethin yl estradioL (Isibloom) 0.15-0.03 mg per tablet Take 1 tablet by mouth 1 (one) time each day. 84 tablet 1 07/28/2025 magnesium oxide (MAG-OX) 400 mg (241.3 elemental magnesium) tablet Take 1 tablet (400 mg total) by mouth. 11/24/2021 rimegepant (Nurtec) 75 mg dispersible tablet DISSOLVE 1 TABLET ON THE TONGUE EVERY OTHER DAY FOR MIGRAINE HEADACHE 11/22/2022 topiramate (TOPAMAX) 25 mg tablet Take 1 tablet (25 mg total) by mouth 1 (one) time each day. 05/19/2023 documented as of this encounter Discharge Disposition Disposition Code Departure Means Destination Home or Self Care documented in this encounter Plan of Treatment Upcoming Encounters Date Type Department Care Team (Late st Contact Info) Description 10/30/2025 3:00 PM EST Office Visit Adult Medicine [address] [phone] Adrienne Hutson MD [address] [place] [address] documented as of this encounter Procedures Procedure Name Priority Date/Time Associated Diagnosis Comments TILT TABLE Routine 08/12/2025 1:49 PM EDT Syncope and collapse documented in this encounter Results * Tilt table (08/12/2025 1:49 PM EDT) Anatomical Region Laterality Modality Radiographic Jessica ging Narrative 08/12/2025 2:59 PM EDT Cardioinhibitory syncope with 15 sec pause. Pt needed 1 l IVNS to stabilize BP Tilt Table The patient was brought to lab in fasting state. Patient lied supine for 10 minutes for equilibrium. Baseline ECG showed normal sinus rhythm. Baseline supine minimum BP: 111/71 mmHg Baseline supine minimum HR: 62 bpm Patient tilted to 70 degrees. Tilt maintained for 20 minutes. Minimum BP during tilt: 88/64 mmHg Maximum BP during tilt: 120/74 mmHg Minimum heart rate during tilt: 71 bpm Maximum heart rate during tilt: 107 bpm Rhythm during tilt: normal sinus rhythm Patient experienced a physiologic HR increase with tilt. No symptoms reported. Nitroglycerin was given during the test. Minimum BP under nitroglycerin: 60/28 Maximum BP under nitroglycerin: 123/78 Minimum HR under nitroglycerin: 0 Maximum HR under nitroglycerin: 151 Rhythm after nitroglycerin administration was sinus tachycardia. Patient experienced an exaggerated HR increase with nitroglycerin. Symptoms seen after the nitroglycerin dose include: light headedness and syncope. Premonitory symptoms were reproduced. Syncope/presyncope symptoms were reproduced. Patient experienced sudden onset of hypotension then bradycardia. Conclusion: Abnormal tilt test with findings consistant with neurocardiogenic physiology. Procedure Note Angie Rivas NP - 08/12/2025 Cardioinhibitory syncope with 15 sec pause. Pt needed 1 l IVNS to stabilize BP Joce Roque MD [facility] PROCEDURES F inal Result documented in this encounter Visit Diagnoses Diagnosis Syncope and collapse documented in this encounter Care Teams Financial Service Rep Relationship Specialty Start Date End Date Adrienne Hutson MD PCP - General Internal Medicine 06/20/22 documented as of this encounter
--- NOTE | 2025-08-13 15:37 | MHC.OFFVIS ---
Intake Visit Reasons: abnormal tilt Intake Note: Video visit abnormal tilt table test Allergies amoxicillin Allergy (Mild, Verified 06/12/25 08:56) unknown soy Adverse Reaction (Mild, Verified 06/12/25 08:56) Unknown Medication List - Last Reconciled 08/13/25 by Joce Roque MD amitriptyline 25 mg PO BEDTIME 30 days desogestrel-ethinyl estradiol 0.15-0.03 mg (Isibloom) 1 tab PO DAILY epinephrine 0.3 mg IM Q4H PRN galcanezumab-gnlm (Emgality Pen) 120 mg subcut Q30D 30 days riboflavin (vitamin B2) 400 mg PO DAILY 90 days rimegepant (Nurtec ODT) 75 mg PO DAILY PRN 30 days MDD 1 tab spironolactone (Aldactone) 100 mg PO DAILY topiramate 25 mg PO DAILY 90 days HPI Comments Details: Elise is here for video follow up visit. Patient underwent a tilt-table test yesterday and after sublingual nitroglycerin had a 15 seconnd pause with a syncopal episode. This reproduced her clinical symptoms. Patient has had not syncopal episodes. Follow-up called for her positive tilt-table test. [facility] Medical History Migraines Family History Mother Cancer Seizures Diabetes Father High cholesterol Social History Alcohol intake: current Alcohol intake frequency: holidays/special occasions only Patient Tobacco Use Status: Never used Tobacco Review of Systems Const Denies chills, Denies fatigue, Denies fever(s), Denies frequent falls, Denies weakness, Denies weight gain and Denies weight loss ENT Denies dizziness Card Denies chest pain, Denies leg edema, Denies lightheadedness, Denies palpitations, Denies dyspnea, Denies dyspnea on exertion, Denies orthopnea and Denies other (loss of consciousness) Resp Denies cough, Denies dyspnea and Denies dyspnea on exertion GI Denies hematochezia and Denies change in stool character Musc Denies abnormal gait, Denies muscle weakness, Denies numbness, Denies radiating pain into limb and Denies tingling Neuro Denies abnormal gait, Denies dizziness, Denies frequent falls, Denies numbness, Denies tingling and Denies weakness Endo Denies fatigue and Denies palpitations Physical Exam Exam Exam: This is a video visit Telehealth Telehealth Telehealth Platform: Telephone Location of provider rendering services: practice address Location of patient: address on file Patient Identification confirmed using: Name, : Yes Telehealth method: video Patient verbally consented to treatment: Yes Patient verbally consented to billing insurance company: Yes Patient informed of any privacy concerns related to visit: Yes Assessment & Plan Assessment & Plan (1) Malignant vasovagal syndrome: Code(s): R55 - Syncope and collapse Category: Medical Plan: Patient with syncopal episode due to vasovagal syncope with major cardio inhibitory syndrome with significant pause after sublingual nitroglycerin. We discussed again the mechanism of vasovagal syncope in details. I have advised her to increase her fluid and salt intake significantly. Also prescribe fludrocortisone 0.1 mg daily for intravascular retention. We discussed about orthostatic precautions especially when she gets her symptoms to seek sitting or supine position. Given her significant cardio inhibitory component, I think she would benefit from further interventions either by cardioneuroablation of the ganglionic autonomic pathway to the heart and/or dual-chamber pacemaker placement with rate drop response. We discussed the benefits including pros and cons of each approach. She understands agrees. Will refer her to at [facility] for consideration of cardioneuroablation if clinically indicated. She is agreeable to pursue her care closer to home. Medications: New fludrocortisone 0.1 mg PO DAILY 30 tabs 5RF Coding Level of Care Code Tele Est Pt Level 4 (31825) Diagnoses Malignant vasovagal syndrome R55
--- OUTSIDE RECORDS SUMMARY | 2025-08-13 17:51 | XMS_ITS ---
Author Organization [facility] [address] [facility] [place] [address] Care Team Providers Care Gas And Oil Servicer Name Role Phone Unavailable Primary Care Provider Unavailabl e Transplant Episode Kidney Potential Donor [facility] ([place], [place]) - [facility] Referred on 04/16/2025 Marked as Patient on Hold on 04/21/2025 Reason: Another Donor in Work-up Kidney CoordinatorMacarena Santo RN Phone: N/A Fax: N/A Email: N/A Care Team Name Role Phone Fax Email Macarena Santo RN Kidney Coordinator N/A N/A N/A Events Pre-Donation Referred: 04/16/2025
--- OUTSIDE RECORDS SUMMARY | 2025-08-13 17:51 | XMS_ITS | Clinical Summary ---
Author Organization [facility] [place] [address] Care Team Providers Care Process Tank Tender Name Role Phone Unavailable Primary Care Provider [...]
--- OUTSIDE RECORDS SUMMARY | 2025-08-13 17:51 | XMS_ITS | Clinical Summary ---
Author Organization [facility] [address] [facility] [address] Address [address] [place] [address] Phone Care Team Providers Care Pet Care Associate Name Role Phone Adrienne Hutson MD Primary [...] w/ o status migrainosus, not intractable 10/15/2019 Encounters Date Type Department Care Team Description 08/12/2025 1:27 PM EDT - 08/12/2025 11:59 PM EDT Hospital Encounter [facility] Xray [address] [place] [address] Syncope and collapse Discharge Disposition: Home or Self Care from Last 3 Months Immunizations Name Administration Dates Next Due DTaP (Infanrix) 6wks to less than 7yo ,10/25/1999,01/21/1999,11/23,1998 [id number] (Pentacel) 2mo to less than 5yo 10/25/1999,01/21/1999,1998,09/24 HPV, Quadrivalent 01/29/2015,09/10/2014,07/08/20 14 Hepatitis B Pediatric (Enger ix B; Recombivax HB) to less than 20 yo 01/21/1999,1998,1998 IPV Inactivated polio (Ipol) 6wks and older 2002,10/25/1999,1998,09/24 Influenza Quadravalent, MDCK , 0.5ml, preservative free (Flucelvax) 6mo and older 12/02/2019 MMR, measles mumps and rubel la Live (Priorix; M-M-R II) 12mo and older 2002,07/27/1999 Meningococcal MCV4P 11/24/2016,07/16/2012 [employer] SARS-CoV-2 COVID-19, mRNA, LNP-S, preservative free 03/10/2021,02/14/2021 Tdap Tetanus diptheria acell ular pertussis (Boostrix; Adacel) 7yo and older 01/03/2022,07/08/2010 Varicella live (Varivax) 12m o and older 07/07/2009,07/27/1999 Surgical History Surgery Date Site/Laterality Comments WISDOM TOOTH EXTRACTION PROCEDURE: HISTORICAL WISDOM TEETH EXTRACTION Medical History Medical History Date Comments [place] teeth extracted DX:[place] teeth extracted Family History Medical History Relation [...] 3:00 PM EST Office Visit Adult Medicine [address] [phone] Adrienne Hutson MD [address] [place] [address] Health Maintenance Due Date Last Done Comments HIV Screening 10/29/2022 Hepatitis C Screening 10/29/2022 Social Influencers of Health Screening 10/29/2022 Depression Screening 11/20/2024 Influenza Vaccine (#1) 2025 , 08/31/2023, 08/13/2021, Additional history exists Cervical Cancer Screening: Pap Smear 05/18/2026 05/18/2023, 12/27/2019 DTaP,Tdap,and Td Vaccines (8 - Td or Tdap) 01/03/2032 01/03/2022, 07/08/2010, 2002, Additional history exists RSV Immunization Adult Patients (1 - 1-dose 75+ series) 2073 Hepatitis B Vaccines Completed 01/21/1999, 1998, 1998 HIB Vaccines Completed 10/25/1999, 04/1999, 01/21/1999, Additional history exists IPV Vaccines Completed 2002, 04/1999, 10/25/1999, Additional history exists MMR Vaccines Completed 2002, 07/27/1999 Varicella Vaccines Completed 07/07/2009, 07/27/1999 HPV Vaccines Completed 01/29/2015, 08/21, 07/08/2014 Meningococcal ACWY Vaccine Completed 11/24/2016, COVID-19 Vaccine Completed 09/04/2024, 10/2023, 03/10/2021, Additional history exists Hepatitis A Vaccines Aged Out No long [...] 08/12/2025 1:49 PM EDT Syncope and collapse ..LAB TO CALL RESULTS Routine 06/12/2025 2:13 PM EDT PAP SMEAR Routine 12/27/2019 from Last 3 Months or Most Recently Relevant to Health Maintenance Results * Tilt table (08/12/2025 1:49 PM [...] CV CARDIAC SERVICES PROCEDURES F inal Result * Lab use only - Non-affiliated results notification (06/12/2025 2:13 PM EDT) Other Topography unknown / Unknown Historical Provider LAB BLOOD ORDERABLES Delmi l Result * Pap smear (12/27/2019) 12/27/2019 Narrative HISTORICAL TESTING LAB RESULTING AGENCY - 12/31/2019 12:31 PM EST [id number] THINPREP PAP, IMAGED: NEGATIVE FOR SQUAMOUS INTRAEPITHELIAL [...] Most Recently Relevant to Health Maintenance Insurance [facility] ([facility]) Care Teams Pet Care Associate Relationship Specialty Start Date End Date Adrienne Hutson MD PCP - General Internal Medicine 06/20/22
--- OUTSIDE RECORDS SUMMARY | 2025-08-13 17:51 | XMS_ITS | Clinical Summary ---
Author Organization [address] Address [address] [place] [phone] Phone Care Team Providers Care Math Coach Name Role Phone Obtain, Unable To Primary [...] 2002, 10/25/1999, Additional history exists Influenza vaccine 06/20/2025 12/02/2019, , 11/28/2017, Additional history exists Covid-19 vaccine series ( - 2023-25 season) 2025 RSV Immunization (1 - 1-dose 75+ series) 2073 Meningococcal Vaccine Completed 11/24/2016, 012 Meningococcal B Vaccine Aged Out No l onger eligible based on patient's age to complete this topic Pneumococcal Vaccine (2 - 49 years) Aged Out No longer eligible based on patient's age to complete this topic Insurance [facility] Care Teams Math Coach Relationship Specialty Start Date End Date Obtain, Unable To PCP - General 03/20/18
--- OUTSIDE RECORDS SUMMARY | 2025-08-13 17:51 | XMS_ITS | Encounter Summary ---
Author Organization [facility] Address [address] [place] [phone] Care Team Providers Care Investigative Research Specialist Name Role Phone Obtain, Unable To Primary Care Provider Unavaila ble Encounter Details Date Type Department Care Team (Late st Contact Info) Description 09/05/2019 Scanned Document Neurology [address] [address] No, Pcp (Do Not Change Name) Social [...] on filedocumented in this encounter Care Teams Investigative Research Specialist Relationship Specialty Start Date End Date Obtain, Unable To PCP - General 03/20/18 documented as of this encounter
== END ==
LOC: HO.HCS 15:37
PROVIDERS: PCP Internal Medicine; Visit Provider Internal Medicine Cardiovascular Disease
DX: R55 Syncope and collapse (principal)
CPT/HCPCS: 99214

== ENCOUNTER 2025-09-04 11:16 | Outpatient (AMB) | payer BC, SELFPAY ==
[2025-09-04 11:18] VITALS: BP 118/64; PULSE 74; BMI 21.8
--- NOTE | 2025-09-04 11:18 | A.OFFVIS_ITS ---
Vital Signs 09/04/25 11:18 Height 5 ft 8 in Weight 143 lb 4.807 oz BMI 21.8 BP 118/64 Blood Pressure Location Lt brachial Position Sitting Pulse 74 Intake Visit Reasons: 3m follow up/ echo/holter/tilt Intake Note: 3 month follow-up after echo, holter and tilt has appt in [place] in Dec [employer] Required: No Allergies amoxicillin Allergy (Mild, Verified 06/12/25 08:56) unknown soy Adverse Reaction (Mild, Verified 06/12/25 08:56) Unknown Medication List - Last Reconciled 09/04/25 by Joce Roque MD amitriptyline 25 mg PO BEDTIME 30 days desogestrel-ethinyl estradiol 0.15-0.03 mg (Isibloom) 1 tab PO DAILY epinephrine 0.3 mg IM Q4H PRN fludrocortisone 0.1 mg PO DAILY galcanezumab-gnlm (Emgality Pen) 120 mg subcut Q30D 30 days riboflavin (vitamin B2) 400 mg PO DAILY 90 days rimegepant (Nurtec ODT) 75 mg PO DAILY PRN 30 days MDD 1 tab spironolactone (Aldactone) 100 mg PO DAILY topiramate 25 mg PO DAILY 90 days HPI Comments Details: Elise comes for follow-up after recent tilt-table test. This is suggestive of severe cardio inhibitory type of vasovagal syncope after nitroglycerin challenge with significant pause with reproduction for clinical symptoms. Since then she has been started on fludrocortisone which she is tolerating well. 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 I have suggested techniques around it. She says now she understands the symptoms little bit better and much before and she tries to push fluids. She has not had actual syncopal episode or events severe lightheaded this episode. She denies any prolonged palpitation irregular heartbeat. She has been referred to EP at [facility] for advanced options [facility] Medical History Migraines Family History Mother Cancer Diabetes Father High cholesterol Social History Alcohol intake: current Alcohol intake frequency: holidays/special occasions only Patient Tobacco Use Status: Never used Tobacco Review of Systems Const Denies chills, Denies fatigue, Denies fever(s), Denies frequent falls, Denies weakness, Denies weight gain and Denies weight loss ENT Denies dizziness Card Denies chest pain, Denies leg edema, Denies lightheadedness, Denies palpitations, Denies dyspnea, Denies dyspnea on exertion, Denies orthopnea and Denies other (loss of consciousness) Resp Denies cough, Denies dyspnea and Denies dyspnea on exertion GI Denies hematochezia and Denies change in stool character Musc Denies abnormal gait, Denies muscle weakness, Denies numbness, Denies radiating pain into limb and Denies tingling Neuro Denies Abnormal speech present, Denies abnormal gait, Denies dizziness, Denies frequent falls, Denies numbness, Denies tingling and Denies weakness Endo Denies fatigue and Denies palpitations Physical Exam Vital Signs: Last Vital Signs Pulse 74 09/04/25 11:18 BP 118/64 09/04/25 11:18 BMI result Body Mass Index 21.8 Const General: cooperative, comfortable, well developed, alert, awake and Physically active Nutritional Appearance: well nourished and thin Orientation/consciousness: patient oriented x3 Limitations: no limitations HEENT Head: Yes normocephalic and Yes atraumatic Neck Neck: Yes trachea midline, Yes supple and Yes no JVD Chest Chest palpation & inspection: normal inspection of the chest Resp Effort & Inspection: normal respiratory effort Auscultation: clear to auscultation bilaterally Cardio Jugular venous distension: no JVD Palpation: normal PMI Rate: regular rate Rhythm: regular rhythm Heart sounds: S1 normal heart sound present, S2 normal heart sound present, no click, no gallops, no murmurs and no rubs GI Auscultation: normal bowel sounds Skin General skin exam: no rashes or lesions noted Neuro General: patient oriented x3 and no focal motor deficits Speech: No Abnormal speech present Extrem General: Yes no clubbing, cyanosis or edema Psych Appearance: grossly normal Assessment & Plan Assessment & Plan (1) Malignant vasovagal syndrome: Code(s): R55 - Syncope and collapse Category: Medical Plan: Malignant vasovagal syncope with significant cardio inhibitory response. We discussed about treatment options. The most important treatment options to prevent triggering off her vasovagal syncope with adequate hydration salt intake and improving intravascular volume status. She is currently on fludrocortisone which she is taking and tolerating well. She has also pushing her fluid and salt intake. We discussed about use of fludrocortisone if she decides to get which will need to be avoided. I have referred her to electrophysiology service at [facility] to consider more advanced therapy including cardio neuro ablation and/or pacemaker therapy versus watchful waiting. She understands. We discussed about orthostatic precautions and seeking supine or sitting position if she gets severely symptomatic. Will follow up in the clinic in 1 year's time, sooner PRN. Thank you for allowing me to partake in her care Coding Level of Care Code Est Pt Level 4 (55738) Complex EM visit Add On G2211 Diagnoses Malignant vasovagal syndrome R55
== END 2025-09-04 11:36 | disposition home or self-care (01) ==
LOC: HO.HCS 11:17
PROVIDERS: PCP Internal Medicine; Visit Provider Internal Medicine Cardiovascular Disease
DX: R55 Syncope and collapse (principal)
CPT/HCPCS: 99214